=== PATIENT | female | born 1995 | race Hispanic/Latino ===

== ENCOUNTER 2020-03-22 07:22 | Emergency (ER) | payer SELFPAY ==
[2020-03-22 08:34] LABS: Basophils # (Auto) 0.1 K/mm3 (0.0-0.1); Basophils % (Auto) 0.6 % (0.0-1.8); Eosinophils # (Auto) 0.2 K/mm3 (0.0-0.4); Hematocrit 35.2 % (30.3-42.9); Hemoglobin 12.1 gm/dl (10.1-14.3); Lymphocytes # (Auto) 2.9 K/mm3 (1.2-5.4); Mean Corpuscular HGB Conc 34 % (30-34); Mean Corpuscular Volume 90 fl (79-97); Monocytes # (Auto) 0.6 K/mm3 (0.0-0.8); Monocytes % (Auto) 7.2 % (0.0-7.3); Platelet Count 339 K/mm3 (140-440); Red Blood Count 3.92 M/mm3 (3.65-5.03); Red Cell Distribution Width 12.4 % (13.2-15.2)
[2020-03-22] MEDS ORDERED: SODIUM CHLORIDE 0.9% 1000 ML 1,000 ML IV ONE (08:49)
[2020-03-22] MEDS ORDERED: KETOROLAC 30 MG/1 ML INJ IV ONE (08:49)
[2020-03-22] MEDS ORDERED: ONDANSETRON 4 MG/2 ML INJ IV ONE (08:49)
--- NOTE | 2020-03-22 08:52 | Emergency Department Report ---
HPI - General Chief Complaint: Abdominal Pain Time Seen by Provider: 03/22/20 08:36 - HPI HPI: Room 17 The patient is a 24-year-old female present with a chief complaint of nausea vomiting and diarrhea. The patient states she has a history of irritable bowel syndrome for the past 1-2 months she has had daily nausea vomiting and diarrhea. Patient states for the same time she has had left-sided abdominal pain has been mostly constant but waxes and wanes. The patient describes the pain as being sharp like a knife. Patient denies any recent antibiotic usage. Patient denies history of fever, dysuria, hematuria or vaginal discharge. ED Past Medical Hx - Past Medical History Previous Medical History?: Yes Additional medical history: IBS - Surgical History Past Surgical History?: No - Family History Family history: no significant - Social History Smoking Status: Never Smoker Substance Use Type: Alcohol (Occasion), Marijuana - Medications Home Medications: Home Medications Medication Instructions Recorded Confirmed Last Taken Type Ciprofloxacin HCl [Ciprofloxacin 500 mg PO Q12HR #14 tab 03/22/20 Unknown Rx TAB] Diphenoxylate/Atropine [Lomotil] 1 - 2 tab PO QID PRN #20 tablet 03/22/20 Unknown Rx Ibuprofen [Motrin 800 MG tab] 800 mg PO Q8HR PRN #20 tablet 03/22/20 Unknown Rx Promethazine [Phenergan] 25 mg PO Q6HR PRN #20 tab 03/22/20 Unknown Rx Promethazine [Phenergan] 25 mg [place] Q6HR PRN #5 supp.rect 03/22/20 Unknown Rx traMADoL [Ultram] 50 mg PO Q6HR PRN #10 tablet 03/22/20 Unknown Rx ED Review of Systems ROS: Stated complaint: FAINT SPELLS/VOMIT/CANT SLEEP Other details as noted in HPI Constitutional: no symptoms reported Respiratory: no symptoms reported Endocrine: no symptoms reported Gastrointestinal: abdominal pain, nausea, vomiting, diarrhea Genitourinary: denies: dysuria, hematuria, discharge Physical Exam - Physical Exam Vital Signs: Vital Signs 03/22/20 07:39 Temperature 98 F Pulse Rate 75 Respiratory 18 Rate Blood Pressure 122/74 O2 Sat by Pulse 98 Oximetry Physical Exam: GENERAL: The patient is well-developed well-nourished female lying on stretcher not appearing to be in acute distress. [] HEENT: Normocephalic. Atraumatic. Extraocular motions are intact. Patient has moist mucous membranes. NECK: Supple. Trachea midline CHEST/LUNGS: Clear to auscultation. There is no respiratory distress noted. HEART/CARDIOVASCULAR: Regular. There is no tachycardia. There is no gallop rub or murmur. ABDOMEN: Abdomen is soft, with diffuse minimal discomfort to palpation greatest in the left lower quadrant. There is no rebound or guarding. Patient has normal bowel sounds. There is no abdominal distention. SKIN: There is no rash. There is no edema. There is no diaphoresis. NEURO: The patient is awake, alert, and oriented. The patient is cooperative. The patient has normal speech MUSCULOSKELETAL: There is no evidence of acute injury. ED Course Vital Signs 03/22/20 07:39 Temperature 98 F Pulse Rate 75 Respiratory 18 Rate Blood Pressure 122/74 O2 Sat by Pulse 98 Oximetry ED Medical Decision Making - Lab Data Result diagrams: 03/22/20 07:55 03/22/20 07:55 Laboratory Tests 03/22/20 03/22/20 03/22/20 07:55 07:55 07:55 WBC 9.0 RBC 3.92 Hgb 12.1 Hct 35.2 MCV 90 MCH 31 MCHC 34 RDW 12.4 L Plt Count 339 Lymph % (Auto) 32.0 [place] % (Auto) 7.2 Eos % (Auto) 2.0 Baso % (Auto) 0.6 Lymph # 2.9 [place]ran # 0.6 Eos # 0.2 Baso # 0.1 Seg Neutrophils % 58.2 Seg Neutrophils # 5.2 Sodium 137 Potassium 3.4 L Chloride 101.7 Carbon Dioxide 23 Anion Gap 16 BUN 5 L Creatinine 0.6 Estimated GFR > 60 BUN/Creatinine Ratio 8 Glucose 99 Calcium 9.4 Total Bilirubin 0.20 AST 12 ALT 11 Alkaline Phosphatase 59 Total Protein 7.0 Albumin 4.0 Albumin/Globulin Ratio 1.3 HCG, Qual Negative Urine Color Urine Turbidity Urine pH Ur Specific [place] Urine Protein Urine Glucose (UA) Urine Ketones Urine Blood Urine Nitrite Urine Bilirubin Urine Urobilinogen Ur Leukocyte Esterase Urine WBC (Auto) Urine RBC (Auto) U Epithel Cells (Auto) Urine Bacteria (Auto) Urine Mucus 03/22/20 09:24 WBC RBC Hgb Hct MCV MCH MCHC RDW Plt Count Lymph % (Auto) [place] % (Auto) Eos % (Auto) Baso % (Auto) Lymph # [place] # Eos # Baso # Seg Neutrophils % Seg Neutrophils # Sodium Potassium Chloride Carbon Dioxide Anion Gap BUN Creatinine Estimated GFR BUN/Creatinine Ratio Glucose Calcium Total Bilirubin AST ALT Alkaline Phosphatase Total Protein Albumin Albumin/Globulin Ratio HCG, Qual Urine Color Yellow Urine Turbidity Cloudy Urine pH 5.0 Ur Specific [place] 1.017 Urine Protein <15 mg/dl Urine Glucose (UA) Neg Urine Ketones Neg Urine Blood Neg Urine Nitrite Neg Urine Bilirubin Neg Urine Urobilinogen < 2.0 Ur Leukocyte Esterase Sm Urine WBC (Auto) 10.0 H Urine RBC (Auto) 5.0 U Epithel Cells (Auto) 23.0 H Urine Bacteria (Auto) 1+ Urine Mucus 3+ - Radiology Data Radiology results: report reviewed (CT abdomen pelvis), image reviewed (CT abdomen pelvis) Findings [facility] [address] [place] [address] Cat Scan Report Signed Patient: OTTO MCGUIRE MR#: [id number] : 1995 Acct:[id number] Age/Sex: 24 / F ADM Date: 03/22/20 Loc: ED Attending Dr: Ordering Physician: CASSIE ESTES MD Date of Service: 03/22/20 Procedure(s): CT abdomen pelvis w con Accession Number(s): [id number] cc: CASSIE ESTES MD CT ABDOMEN AND PELVIS WITH CONTRAST HISTORY: Left-sided abdominal pain nvd h/o IBS COMPARISON: None. TECHNIQUE: Axial CT images were obtained through the abdomen and pelvis after 100 cc of Omnipaque 300 intravenously. Sagittal and coronal reformatted images. All CT scans at this location are performed using CT dose reduction for ALARA by means of automated exposure control. FINDINGS: CT ABDOMEN: Lung Bases: Clear. Liver: No significant abnormality. Biliary: No significant abnormality. Spleen: No significant abnormality. Unenlarged. Pancreas: No significant abnormality. Adrenals: No significant abnormality. Kidneys: No significant abnormality. Lymphatics: No lymphadenopathy. Vasculature: No significant abnormality. Bowel/Peritoneum: No evidence for bowel obstruction or focal inflammation. Normal appendix. There is a well- circumscribed 2.8 x 2.5 cm cyst with focal wall calcifications between small bowel loops in the pelvis. This appears to be separate from the uterus and ovaries. No inflammation is appreciated. The significance of this is unclear. 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 Osseous Structures: No significant abnormality. Additional Findings: None IMPRESSION: No acute inflammatory process or clear explanation for left abdominal pain. Small mesenteric cyst in the pelvis as outlined above. Signer Name: Vasquez Campbell Jr, MD Signed: 03/22/2020 9:42 AM Workstation Name: [id number] Transcribed By: TTR Dictated By: VASQUEZ CAMPBELL JR, MD Electronically Authenticated By: VASQUEZ CAMPBELL JR, MD Signed Date/Time: 03/22/20941 DD/ 6 TD/TT: - Differential Diagnosis Irritable bowel syndrome, partial small bowel obstruction, dehydration, col Critical care attestation.: If time is entered above; I have spent that time in minutes in the direct care of this critically ill patient, excluding procedure time. ED Disposition Clinical Impression: Abdominal pain, Nausea vomiting and diarrhea, Irritable bowel syndrome, UTI (urinary tract infection) Disposition: - TO HOME OR SELFCARE Is pt being admited?: No Does the pt Need Aspirin: No Condition: Stable Instructions: Abdominal Pain (ED) Additional Instructions: Return to the emergency department should you develop worsening symptoms, mariel bility to tolerate food or liquids, high fever or any other concerns Prescriptions: Ciprofloxacin HCl [Ciprofloxacin TAB] 500 mg PO Q12HR #14 tab Diphenoxylate/Atropine [Lomotil] 1 - 2 tab PO QID PRN #20 tablet PRN Reason: Diarrhea Ibuprofen [Motrin 800 MG tab] 800 mg PO Q8HR PRN #20 tablet PRN Reason: Pain, Moderate (4-6) Promethazine [Phenergan] 25 mg PO Q6HR PRN #20 tab PRN Reason: Nausea Promethazine [Phenergan] 25 mg [place] Q6HR PRN #5 supp.rect PRN Reason: Vomiting traMADoL [Ultram] 50 mg PO Q6HR PRN #10 tablet PRN Reason: Pain Referrals: PRIMARY CARE, [Primary Care Provider] - 3-5 Days KIRIT LEYVA MD [Staff Physician] - 3-5 Days (Dr. Leyva is a almond roaster. Please follow-up with him for further evaluation) Time of Disposition: 11:04
[2020-03-22 08:54] LABS: Alanine Aminotransferase 11 units/L (7-56); Blood Urea Nitrogen 5 mg/dL (7-17); Calcium 9.4 mg/dL (8.4-10.2); Hemolysis Index 3
[2020-03-22 09:01] LABS: BUN/Creatinine Ratio 8
--- NOTE | 2020-03-22 09:46 | Cat Scan Report ---
CT ABDOMEN AND PELVIS WITH CONTRAST HISTORY: Left-sided abdominal pain nvd h/o IBS COMPARISON: None. TECHNIQUE: Axial CT images were obtained through the abdomen and pelvis after 100 cc of Omnipaque 300 intravenously. Sagittal and coronal reformatted images. All CT scans at this location are performed using CT dose reduction for ALARA by means of automated exposure control. FINDINGS: CT ABDOMEN: Lung Bases: Clear. Liver: No significant abnormality. Biliary: No significant abnormality. Spleen: No significant abnormality. Unenlarged. Pancreas: No significant abnormality. Adrenals: No significant abnormality. Kidneys: No significant abnormality. Lymphatics: No lymphadenopathy. Vasculature: No significant abnormality. Bowel/Peritoneum: No evidence for bowel obstruction or focal inflammation. Normal appendix. There is a well-circumscribed 2.8 x 2.5 cm cyst with focal wall calcifications between small bowel loops in th e pelvis. This appears to be separate from the uterus and ovaries. No inflammation is appreciated. Th e significance of this is unclear. 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 Osseous Structures: No significant abnormality. Additional Findings: None IMPRESSION: No acute inflammatory process or clear explanation for left abdominal pain. Small mesenteric cyst in the pelvis as outlined above. Signer Name: Vasquez Campbell Jr, MD Signed: 03/22/2020 9:42 AM Workstation Name: [id number]
[2020-03-22 10:45] LABS: Bacteria,Urine 1+ /HPF (Negative); Bilirubin,Urine NEG (Negative); Blood,Urine NEG (Negative); Color,Urine Yellow (Yellow); Mucus,Urine 3+ /HPF; Protein,Urine <15 mg/dL mg/dL (Negative); Urobilinogen,Urine < 2.0 mg/dL (<2.0)
[2020-03-22 13:44] VITALS: BP 109/67
== END 2020-03-22 11:08 | disposition home or self-care (01) ==
LOC: ED 07:22
DX: N39.0 Urinary tract infection, site not specified (principal); K58.9 Irritable bowel syndrome, unspecified; R19.7 Diarrhea, unspecified; R11.2 Nausea with vomiting, unspecified; R10.9 Unspecified abdominal pain; F12.90 Cannabis use, unspecified, uncomplicated; Z79.899 Other long term (current) drug therapy
CPT/HCPCS: 36415; 74177; 80053; 81001; 84703; 85025; 87086; 93005; 96361; 96374; 96375; 99284; J1885; J2405; J7030; Q9967

== ENCOUNTER 2020-04-12 07:49 | Emergency (ER) | payer SELFPAY ==
[2020-04-12] MEDS ORDERED: ONDANSETRON 4 MG/2 ML INJ IV ONE (08:17)
[2020-04-12] MEDS ORDERED: SODIUM CHLORIDE 0.9% 1000 ML 1,000 ML IV ONE (08:17)
[2020-04-12 08:43] LABS: Basophils # (Auto) 0.1 K/mm3 (0.0-0.1); Basophils % (Auto) 0.4 % (0.0-1.8); Eosinophils # (Auto) 0.1 K/mm3 (0.0-0.4); Eosinophils % (Auto) 0.9 % (0.0-4.3); Hematocrit 36.2 % (30.3-42.9); Hemoglobin 12.5 gm/dl (10.1-14.3); Lymphocytes # (Auto) 2.5 K/mm3 (1.2-5.4); Lymphocytes % (Auto) 17.6 % (13.4-35.0); Mean Corpuscular HGB Conc 35 % (30-34); Mean Corpuscular Volume 89 fl (79-97); Monocytes # (Auto) 0.7 K/mm3 (0.0-0.8); Monocytes % (Auto) 4.7 % (0.0-7.3); Platelet Count 409 K/mm3 (140-440); Red Blood Count 4.06 M/mm3 (3.65-5.03); Red Cell Distribution Width 12.5 % (13.2-15.2)
[2020-04-12 09:03] LABS: Alanine Aminotransferase 11 units/L (7-56); Albumin 4.2 g/dL (3.9-5); Blood Urea Nitrogen 8 mg/dL (7-17); Calcium 9.8 mg/dL (8.4-10.2); Hemolysis Index 6
[2020-04-12 09:04] LABS: BUN/Creatinine Ratio 11
--- NOTE | 2020-04-12 11:08 | Emergency Department Report ---
ED General Adult HPI - General Chief complaint: Nausea/Vomiting/Diarrhea Stated complaint: VOMITING Time Seen by Provider: 04/12/20 08:17 Source: patient Mode of arrival: Wheelchair Limitations: No Limitations - History of Present Illness Initial comments: Patient is a 24-year-old female presents emergency room with complaints of nausea vomiting that began this morning around 4:30 AM. She states that she was not able to tolerate p.o. intake. Patient states that she has a history of IBS and intermittently has episodes like this. She is denies any abdominal pain, she states that she just has some soreness due to the frequent vomiting. She states that she recently moved here and just received insurance so she has not yet followed up with a GI doctor. She denies any diarrhea, fever, dysuria. She denies any sick contacts or recent travel. She states that she last ate some solid food. She states that she had a normal bowel movement yesterday. She denies any other past medical history. No allergies to medications. Last menstrual cycle last week. - Related Data Previous Rx's Medication Instructions Recorded Last Taken Type Ciprofloxacin HCl [Ciprofloxacin 500 mg PO Q12HR #14 tab 03/22/20 Unknown Rx TAB] Diphenoxylate/Atropine [Lomotil] 1 - 2 tab PO QID PRN #20 tablet 03/22/20 Unknown Rx Ibuprofen [Motrin 800 MG tab] 800 mg PO Q8HR PRN #20 tablet 03/22/20 Unknown Rx Promethazine [Phenergan] 25 mg PO Q6HR PRN #20 tab 03/22/20 Unknown Rx Promethazine [Phenergan] 25 mg [place] Q6HR PRN #5 supp.rect 03/22/20 Unknown Rx traMADoL [Ultram] 50 mg PO Q6HR PRN #10 tablet 03/22/20 Unknown Rx Ondansetron [Zofran Odt] 4 mg PO Q8HR PRN #20 tab.rapdis 04/12/20 Unknown Rx Allergies Allergy/AdvReac Type Severity Reaction Status Date / Time No Known Allergies Allergy Verified 04/12/20 07:52 ED Review of Systems ROS: Stated complaint: VOMITING Other details as noted in HPI Comment: All other systems reviewed and negative ED Past Medical Hx - Past Medical History Additional medical history: IBS - Social History Smoking Status: Never Smoker Substance Use Type: Marijuana - Medications Home Medications: Home Medications Medication Instructions Recorded Confirmed Last Taken Type Ciprofloxacin HCl [Ciprofloxacin 500 mg PO Q12HR #14 tab 03/22/20 Unknown Rx TAB] Diphenoxylate/Atropine [Lomotil] 1 - 2 tab PO QID PRN #20 tablet 03/22/20 Unknown Rx Ibuprofen [Motrin 800 MG tab] 800 mg PO Q8HR PRN #20 tablet 03/22/20 Unknown Rx Promethazine [Phenergan] 25 mg PO Q6HR PRN #20 tab 03/22/20 Unknown Rx Promethazine [Phenergan] 25 mg [place] Q6HR PRN #5 supp.rect 03/22/20 Unknown Rx traMADoL [Ultram] 50 mg PO Q6HR PRN #10 tablet 03/22/20 Unknown Rx Ondansetron [Zofran Odt] 4 mg PO Q8HR PRN #20 tab.rapdis 04/12/20 Unknown Rx ED Physical Exam - General Limitations: No Limitations General appearance: alert, in no apparent distress - Head Head exam: Present: atraumatic, normocephalic - Eye Eye exam: Present: normal appearance - ENT ENT exam: Present: mucous membranes moist - Respiratory Respiratory exam: Present: normal lung sounds bilaterally. Absent: respiratory distress, wheezes, rales, rhonchi, stridor, chest wall tenderness, accessory muscle use, decreased breath sounds, prolonged expiratory - Cardiovascular Cardiovascular Exam: Present: regular rate, normal rhythm, normal heart sounds. Absent: systolic murmur, diastolic murmur, rubs, gallop - GI/Abdominal GI/Abdominal exam: Present: soft, normal bowel sounds, other (negative murphys sign, no mcburneys point ttp, no delong turners or cullens sign ). Absent: distended, tenderness, guarding, rebound, rigid - Neurological Exam Neurological exam: Present: alert, oriented X3 - Psychiatric Psychiatric exam: Present: normal affect, normal mood - Skin Skin exam: Present: warm, dry, intact ED Course Vital Signs 04/12/20 04/12/20 04/12/20 07:55 11:15 12:29 Temperature 97.7 F Pulse Rate 101 H 75 Respiratory 20 18 Rate Blood Pressure 109/74 105/52 O2 Sat by Pulse 100 99 100 Oximetry ED Medical Decision Making - Lab Data Result diagrams: 04/12/20 08:25 04/12/20 08:25 Lab Results 04/12/20 04/12/20 04/12/20 Range/Units 08:25 08:25 08:25 WBC 14.2 H (4.5-11.0) K/mm3 RBC 4.06 (3.65-5.03) M/mm3 Hgb 12.5 (10.1-14.3) gm/dl Hct 36.2 (30.3-42.9) % MCV 89 (79-97) fl MCH 31 (28-32) pg MCHC 35 H (30-34) % RDW 12.5 L (13.2-15.2) % Plt Count 409 (140-440) K/mm3 Lymph % (Auto) 17.6 (13.4-35.0) % [place] % (Auto) 4.7 (0.0-7.3) % Eos % (Auto) 0.9 (0.0-4.3) % Baso % (Auto) 0.4 (0.0-1.8) % Lymph # 2.5 (1.2-5.4) K/mm3 [place] # 0.7 (0.0-0.8) K/mm3 Eos # 0.1 (0.0-0.4) K/mm3 Baso # 0.1 (0.0-0.1) K/mm3 Seg Neutrophils % 76.4 H (40.0-70.0) % Seg Neutrophils # 10.8 H (1.8-7.7) K/mm3 Sodium 136 L (137-145) mmol/L Potassium 3.5 L (3.6-5.0) mmol/L Chloride 98.4 (98-107) mmol/L Carbon Dioxide 25 (22-30) mmol/L Anion Gap 16 mmol/L BUN 8 (7-17) mg/dL Creatinine 0.7 (0.6-1.2) mg/dL Estimated GFR > 60 ml/min BUN/Creatinine Ratio 11 % Glucose 108 H (65-100) mg/dL Calcium 9.8 (8.4-10.2) mg/dL Total Bilirubin 0.30 (0.1-1.2) mg/dL AST 14 (5-40) units/L ALT 11 (7-56) units/L Alkaline Phosphatase 80 (35-129) units/L Total Protein 7.2 (6.3-8.2) g/dL Albumin 4.2 (3.9-5) g/dL Albumin/Globulin Ratio 1.4 % Lipase 28 (13-60) units/L HCG, Qual Negative (Negative) Urine Color (Yellow) Urine Turbidity (Clear) Urine pH (5.0-7.0) Ur Specific [place] (1.003-1.030) Urine Protein (Negative) mg/dL Urine Glucose (UA) (Negative) mg/dL Urine Ketones (Negative) mg/dL Urine Blood (Negative) Urine Nitrite (Negative) Urine Bilirubin (Negative) Urine Urobilinogen (<2.0) mg/dL Ur Leukocyte Esterase (Negative) Urine WBC (Auto) (0.0-6.0) /HPF Urine RBC (Auto) (0.0-6.0) /HPF U Epithel Cells (Auto) (0-13.0) /HPF Urine Bacteria (Auto) (Negative) /HPF Urine Mucus /HPF 04/12/20 Range/Units Unknown WBC (4.5-11.0) K/mm3 RBC (3.65-5.03) M/mm3 Hgb (10.1-14.3) gm/dl Hct (30.3-42.9) % MCV (79-97) fl MCH (28-32) pg MCHC (30-34) % RDW (13.2-15.2) % Plt Count (140-440) K/mm3 Lymph % (Auto) (13.4-35.0) % [place] % (Auto) (0.0-7.3) % Eos % (Auto) (0.0-4.3) % Baso % (Auto) (0.0-1.8) % Lymph # (1.2-5.4) K/mm3 [place] # (0.0-0.8) K/mm3 Eos # (0.0-0.4) K/mm3 Baso # (0.0-0.1) K/mm3 Seg Neutrophils % (40.0-70.0) % Seg Neutrophils # (1.8-7.7) K/mm3 Sodium (137-145) mmol/L Potassium (3.6-5.0) mmol/L Chloride (98-107) mmol/L Carbon Dioxide (22-30) mmol/L Anion Gap mmol/L BUN (7-17) mg/dL Creatinine (0.6-1.2) mg/dL Estimated GFR ml/min BUN/Creatinine Ratio % Glucose (65-100) mg/dL Calcium (8.4-10.2) mg/dL Total Bilirubin (0.1-1.2) mg/dL AST (5-40) units/L ALT (7-56) units/L Alkaline Phosphatase (35-129) units/L Total Protein (6.3-8.2) g/dL Albumin (3.9-5) g/dL Albumin/Globulin Ratio % Lipase (13-60) units/L HCG, Qual (Negative) Urine Color Yellow (Yellow) Urine Turbidity Cloudy (Clear) Urine pH 5.0 (5.0-7.0) Ur Specific [place] 1.011 (1.003-1.030) Urine Protein <15 mg/dl (Negative) mg/dL Urine Glucose (UA) Neg (Negative) mg/dL Urine Ketones Neg (Negative) mg/dL Urine Blood Neg (Negative) Urine Nitrite Neg (Negative) Urine Bilirubin Neg (Negative) Urine Urobilinogen < 2.0 (<2.0) mg/dL Ur Leukocyte Esterase Tr (Negative) Urine WBC (Auto) 3.0 (0.0-6.0) /HPF Urine RBC (Auto) 4.0 (0.0-6.0) /HPF U Epithel Cells (Auto) 20.0 H (0-13.0) /HPF Urine Bacteria (Auto) 1+ (Negative) /HPF Urine Mucus 3+ /HPF Vital Signs 04/12/20 04/12/20 04/12/20 07:55 11:15 12:29 Temperature 97.7 F Pulse Rate 101 H 75 Respiratory 20 18 Rate Blood Pressure 109/74 105/52 O2 Sat by Pulse 100 99 100 Oximetry - Medical Decision Making Patient is a 24-year-old female presents emergency room with complaints of nausea vomiting that began this morning around 4:30 AM. She states that she was not able to tolerate p.o. intake. Patient states that she has a history of IBS and intermittently has episodes like this. She is denies any abdominal pain, she states that she just has some soreness due to the frequent vomiting. She states that she recently moved here and just received insurance so she has not yet followed up with a GI doctor. She denies any diarrhea, fever, dysuria. She denies any sick contacts or recent travel. She states that she last ate some solid food. She states that she had a normal bowel movement yesterday. She denies any other past medical history. No allergies to medications. Last menstrual cycle last week. vss. on exam: negative murphys sign, no mcburneys point ttp, no delong turners or cullens sign , no abd ttp, no guarding, no rebou nd, no rigidity, normal bowel sounds, no peritoneal signs. labs with mild elevation in WBC most likely related to frequent vomiting, she is not having abd pain, no fever, no abd ttp on exam. UA does not appear consistent with UTI, she is not having urinary symptoms, there are many epithelial cells which is consistent with contamination. hcg is negative. pt given 1L of NS and zofran and symptoms completely resolved and she was feeling much better and ready to go home. pt given prescription for zofran. pt does endorse frequent marijuana use, I discussed cannabinoid hyperemesis with pt and advised pt to stop smoking marijuana. Advised patient to please take medication as prescribed. Increase your water intake. Eat a bland liquid diet and slowly advance your diet as tolerated. Avoid anything sugary or greasy. Follow-up with a primary care doctor. Follow-up with a GI doctor. Return to the emergency room immediately for any new or worsening symptoms including but not limited to unable to tolerate by mouth intake, fever, if you began experiencing abdominal pain, etc. - Differential Diagnosis IBS, gastroenteritis, gastritis, IBD, cannabinoid hyperemesis, UTI, dehydra Critical care attestation.: If time is entered above; I have spent that time in minutes in the direct care of this critically ill patient, excluding procedure time. ED Disposition Clinical Impression: Nausea and vomiting Qualifiers: Vomiting type: unspecified Vomiting Intractability: non-intractable Qualified Code(s): R11.2 - Nausea with vomiting, unspecified Disposition: DC-01 TO HOME OR SELFCARE Is pt being admited?: No Does the pt Need Aspirin: No Condition: Stable Instructions: Gastritis (ED), Irritable Bowel Syndrome (ED) Additional Instructions: please take medication as prescribed. may use your phenergan suppository if zofran is not helping. Increase your water intake. Eat a bland liquid diet and slowly advance your diet as tolerated. Avoid anything sugary or greasy. Foll ow-up with a primary care doctor. Follow-up with a GI doctor. Return to the emergency room immediately for any new or worsening symptoms including but not limited to unable to tolerate by mouth intake, fever, if you began experiencing abdominal pain, etc. Prescriptions: Ondansetron [Zofran Odt] 4 mg PO Q8HR PRN #20 tab.rapdis PRN Reason: Nausea And Vomiting Referrals: PHAN DAVILA MD [Primary Care Provider] - 2-3 Days [facility] [Provider Group] - 2-3 Days Forms: Work/School Release Form(ED) Time of Disposition: 11:35 Print Language: SWEDISH
[2020-04-12 11:26] LABS: Bacteria,Urine 1+ /HPF (Negative); Bilirubin,Urine NEG (Negative); Blood,Urine NEG (Negative); Color,Urine Yellow (Yellow); Mucus,Urine 3+ /HPF; Protein,Urine <15 mg/dL mg/dL (Negative); Urobilinogen,Urine < 2.0 mg/dL (<2.0)
[2020-04-12 12:40] VITALS: BP 105/52
== END 2020-04-12 12:44 | disposition home or self-care (01) ==
LOC: ED 07:49
DX: R11.2 Nausea with vomiting, unspecified (principal); F12.10 Cannabis abuse, uncomplicated; Z79.899 Other long term (current) drug therapy
CPT/HCPCS: 36415; 80053; 81001; 83690; 84703; 85025; 96361; 96374; 99283; J2405; J7030